=== PATIENT | female | born 1955 | race Caucasian/White ===

== ENCOUNTER 2017-10-18 22:21 | Emergency (ER) | payer SELFPAY ==
[~2017-10-18] VITALS: Ht 162.6 cm; Wt 70.0 kg
[2017-10-18] MEDS ORDERED: SODIUM CHLORIDE FLUSH 10ML SYR IVF ONE (22:30)
[2017-10-18] MEDS ORDERED: SODIUM CHLORIDE 0.9% 1,000ML IVBOLUS ONE (22:30)
[2017-10-18 23:09] LABS: ASPARTATE AMINO TRANSFERASE 64 U/L (15-37); BLOOD UREA NITROGEN 13 mg/dL (7-18)
[2017-10-18 23:15] LABS: HEMATOCRIT 43.5 % (34.6-47.8); HEMOGLOBIN 14.7 g/dL (11.7-16.4); WHITE BLOOD COUNT 6.6 x10^3/uL (3.4-10)
[2017-10-19 00:49] VITALS: BP 157/117
[2017-10-20] MEDS ORDERED: [UNRECOGNIZED DRUG - CODE] PO (12:06)
[2017-10-20] MEDS ORDERED: MULT1TAB53 PO (12:06)
[2017-10-20] MEDS ORDERED: MAGN400T36 PO (12:15)
[2017-10-20] MEDS ORDERED: POTA20TA91 PO (12:16)
== END 2017-10-19 00:53 | disposition home or self-care (01) ==
LOC: ED 23:52
DX: E87.6 Hypokalemia (principal); I10 Essential (primary) hypertension
CPT/HCPCS: 36415; 70450; 80053; 80307; 85025; 99285; G0479

== ENCOUNTER 2017-10-19 01:48 | Inpatient (IN) | payer SELFPAY ==
[2017-10-19] VITALS (8 sets, daily range): BP systolic 114–158; BP diastolic 75–97
[~2017-10-19] VITALS: Ht 162.6 cm; Wt 60.5 kg
[2017-10-19] MEDS ORDERED: SODIUM CHLORIDE 0.9% 1,000 ML IV ONE (01:53)
[2017-10-19] MEDS ORDERED: SODIUM CHLORIDE FLUSH 10ML SYR IVF ONE (02:00)
[2017-10-19] MEDS ORDERED: POTASSIUM CHLORIDE 40 MEQ in SODIUM CHLORIDE 0.9% 500 ML IV ONE (02:30)
[2017-10-19] MEDS ORDERED: hydrALAzine 20 MG/ML, 1ML IV PRN (03:30)
[2017-10-19 08:13] LABS: BLOOD UREA NITROGEN 11 mg/dL (7-18)
[2017-10-19] MEDS: SODIUM CHLORIDE FLUSH 10ML SYR IVF SCH ×2 (09:00→21:00)
[2017-10-19] MEDS: SODIUM CHLORIDE 0.9% 1,000 ML IV SCH ×2 (11:49→23:10)
[2017-10-19] MEDS ORDERED: LORazepam 2 MG/ML, 1ML IVPush PRN (12:00)
[2017-10-19] MEDS ORDERED: NICOTINE 14MG/24 HR PATCH.TD24 TD ONE (17:00)
[2017-10-19] MEDS ORDERED: GADOBUTROL 7.5 MMOL/7.5 ML PFS ONE (17:47)
[2017-10-19] MEDS: HEPARIN 5,000 UNITS/ML, 1ML SQ SCH (21:36)
[2017-10-20 02:00] VITALS: BP 147/88
[2017-10-20 05:50] LABS: HEMATOCRIT 34.8 % (34.6-47.8); HEMOGLOBIN 11.9 g/dL (11.7-16.4); WHITE BLOOD COUNT 5.5 x10^3/uL (3.4-10)
[2017-10-20 05:58] LABS: ASPARTATE AMINO TRANSFERASE 54 U/L (15-37); BLOOD UREA NITROGEN 6 mg/dL (7-18)
[2017-10-20 07:00] VITALS: BP 150/86
[2017-10-20 07:01] VITALS: BP 163/99
[2017-10-20 07:02] VITALS: BP 148/103
[2017-10-20] MEDS: HEPARIN 5,000 UNITS/ML, 1ML SQ SCH (09:00)
[2017-10-20] MEDS: SODIUM CHLORIDE FLUSH 10ML SYR IVF SCH (09:00)
[2017-10-20] MEDS ORDERED: POTASSIUM CHLORIDE 20 MEQ TAB.ER.PRT PO ONE (09:30)
[2017-10-20] MEDS ORDERED: MULT1TAB53 PO (12:06)
[2017-10-20] MEDS ORDERED: [UNRECOGNIZED DRUG - CODE] PO (12:06)
[2017-10-20] MEDS ORDERED: MAGN400T36 PO (12:15)
[2017-10-20] MEDS ORDERED: POTA20TA91 PO (12:16)
== END 2017-10-20 12:59 | disposition home or self-care (01) | DRG 101 ==
LOC: ED 01:53 → EDIP 02:45 → 4EST 03:22
PROVIDERS: ADMIT Family Medicine; ATTEND Family Medicine
DX: R56.9 Unspecified convulsions (principal); E83.42 Hypomagnesemia; E87.6 Hypokalemia; F10.10 Alcohol abuse, uncomplicated; I10 Essential (primary) hypertension; I34.0 Nonrheumatic mitral (valve) insufficiency
CPT/HCPCS: 36415; 70553; 80048; 80053; 81003; 82533; 83735; 84443; 85025; 93005; 93306; 93880; 95819; 99285; A9585; J1644; J3480; J2060; J7030; J7040